=== PATIENT | female | born 1935 | race Caucasian/White ===

== ENCOUNTER 2017-06-23 11:08 | Observation (INO) | payer OTHER ==
[2017-06-23 12:54] LABS: BASOPHIL 0.6 % (0-2.0); EOSINOPHIL 8.8 % (0-4.5); MCH 28.7 pg (25.7-33.7); MCHC 32.1 g/dl (32.0-36.0); MEAN CELL VOLUME 89.4 fl (80-96); MEAN PLT VOLUME 9.7 fl (7.5-11.1); NEUTROPHILS 68.6 % (42.8-82.8); PLATELET COUNT 133 K/MM3 (134-434); RDW 14.3 % (11.6-15.6); WHITE BLOOD COUNT 4.3 K/mm3 (4.0-10.0)
[2017-06-23] MEDS ORDERED: SODIUM CHLORIDE 1,000 ML IV STA (13:04)
--- NOTE | 2017-06-23 13:07 | PDOC ---
History of Present Illness <Jennifer Platt - Last Filed: 06/23/17 16:33> - History of Present Illness Initial Comments: 06/23/17 13:01 "The patient is a 81 year old female, with significant past medical history of anxiety, agoraphobia, HTN, hypothyroidism, who presents to the emergency room complaining of 3 days of generalized weakness that progressively worsened this morning when she found it very difficult to get out of bed and felt like her legs were going to give out. She states that she has no energy. She explains that she recently discontinued taking adderall 3 days ago and has been feeling weak since. The patient was prescribed adderall 1 month ago and has been taking it daily. She states that she hasnt been eating much or drinking many fluids over the past few days. Her son notes that this has happened previously when the patient stopped taking adderall abruptly in the past. Pt denies weakness/ numbness/tingling on one side of her body, denies slurred speech or confusion. Denies fever, chills, vomiting. Denies headache, lightheadedness. Denies changes in vision. Denies chest pain, SOB. Social hx: The patient is a recent and lives home alone, but her daughter lives next door and takes care of her. PCP is Dr. Butler <Pierre Queen - Last Filed: 06/23/17 16:37> - General Chief Complaint: Weakness Stated Complaint: WEAKNESS Time Seen by Provider: 06/23/17 11:36 Past History <Jennifer Platt - Last Filed: 06/23/17 16:33> - Past Medical History Anemia: No Asthma: No HTN: Yes Thyroid Disease: Yes (hypo) - Surgical History Cholecystectomy: Yes - Suicide/Smoking/Psychosocial Hx Smoking History: Current every day smoker Have you smoked in the past 12 months: Yes Number of Cigarettes Smoked Daily: 10 Information on smoking cessation initiated: No 'Breaking Loose' booklet given: 11/06/14 Hx Alcohol Use: No Drug/Substance Use Hx: No Substance Use Type: None <Pierre Queen - Last Filed: 06/23/17 16:37> - Past Medical History Allergies/Adverse Reactions: Allergies Allergy/AdvReac Type Severity Reaction Status Date / Time No Known Allergies Allergy Verified 06/23/17 12:03 Home Medications: Ambulatory Orders Paroxetine HCl [Paxil -] 20 mg PO DAILY 11/05/14 Ramipril 10 mg PO DAILY 11/05/14 Budesonide/Formeterol Fumarate [SYMBICORT 80/4.5mcg -] 2 inh IH BID #0 inhaler 11/13/14 Levothyroxine [Synthroid -] 100 mcg PO DAILY@0700 #0 tablet 11/13/14 Pantoprazole Sodium [Protonix -] 20 mg PO DAILY #0 tablet.ec 11/13/14 Diazepam [Valium] 2 mg PO HS 06/23/17 Review of Systems - Review of Systems Comments:: 06/23/17 13:03 "GENERAL/CONSTITUTIONAL: +generalized weakness. No fever or chills. HEAD, EYES, EARS, NOSE AND THROAT: No change in vision. No ear pain or discharge. No sore throat. CARDIOVASCULAR: No chest pain or shortness of breath. RESPIRATORY: No cough, wheezing, or hemoptysis. GASTROINTESTINAL: No nausea, vomiting, diarrhea or constipation. GENITOURINARY: No dysuria, frequency, or change in urination. MUSCULOSKELETAL: No joint or muscle swelling or pain. No neck or back pain. SKIN: No rash NEUROLOGIC: No headache, vertigo, loss of consciousness, or change in strength/ sensation. ENDOCRINE: No increased thirst. No abnormal weight change. HEMATOLOGIC/LYMPHATIC: No anemia, easy bleeding, or history of blood clots. ALLERGIC/IMMUNOLOGIC: No hives or skin allergy." <Pierre Queen - Last Filed: 06/23/17 16:37> *Physical Exam - Vital Signs Last Vital Signs Temp Pulse Resp BP Pulse Ox 97.7 F 50 L 20 106/49 99 06/23/17 11:13 06/23/17 11:13 06/23/17 11:13 06/23/17 11:13 06/23/17 12:46 <Jennifer Platt - Last Filed: 06/23/17 16:33> - Vital Signs Last Vital Signs Temp Pulse Resp BP Pulse Ox 97.7 F 50 L 20 106/49 99 06/23/17 11:13 06/23/17 11:13 06/23/17 11:13 06/23/17 11:13 06/23/17 12:46 - Physical Exam Comments: 06/23/17 13:03 " GENERAL: Awake, alert, and fully oriented, in no acute distress HEAD: No signs of trauma EYES: PERRLA, EOMI, sclera anicteric, conjunctiva clear ENT: Auricles normal inspection, hearing grossly normal, nares patent, oropharynx clear without exudates. Moist mucosa NECK: Nontender, no stepoffs, Normal ROM, supple, no lymphadenopathy, JVD, or masses LUNGS: Breath sounds equal, clear to auscultation bilaterally. No wheezes, and no crackles HEART: Regular rate and rhythm, normal S1 and S2, no murmurs, rubs or gallops ABDOMEN: Soft, nontender, normoactive bowel sounds. No guarding, no rebound. No masses EXTREMITIES: Normal range of motion, no edema. No clubbing or cyanosis. No cords, erythema, or tenderness NEUROLOGICAL: Cranial nerves II through XII intact. 5/5 strength and sensation in all extremities, Normal speech, normal gait, normal cerebellar tests SKIN: Warm, Dry, normal turgor, no rashes or lesions noted." <Pierre Queen - Last Filed: 06/23/17 16:37> Heart Score/ECG Review - ECG Impressions Comment:: 06/23/17 13:05 NSR, no MAYNOR/STDs, TWI inferiorly, intervals wnl. <Pierre Queen - Last Filed: 06/23/17 16:37> ED Treatment Course - LABORATORY CBC & Chemistry Diagram: 06/23/17 12:40 06/23/17 12:40 - ADDITIONAL ORDERS Additional order review: Laboratory Results 06/23/17 06/23/17 06/23/17 12:40 12:40 12:40 PTT (Actin FS) 27.9 Lactic Acid 0.9 Magnesium 2.0 Creatine Kinase 81 Troponin I < 0.02 B-Natriuretic Peptide 418.42 Blood Type Antibody Screen Spec Expiration Date 06/23/17 12:40 PTT (Actin FS) Lactic Acid Magnesium Creatine Kinase Troponin I B-Natriuretic Peptide Blood Type Cancelled Antibody Screen Cancelled Spec Expiration Date Cancelled 06/23/17 12:40 RBC 4.00 MCV 89.4 MCHC 32.1 RDW 14.3 MPV 9.7 D Neutrophils % 68.6 D Lymphocytes % 13.7 D Monocytes % 8.3 Eosinophils % 8.8 H D Basophils % 0.6 - RADIOLOGY Radiograph Interpretation: 06/23/17 14:22 EXAM#: TYPE/EXAM: RESULT: [id number] RAD/CHEST X-RAY PORTABLE* HISTORY PROVIDED: Weakness. A single frontal portable projection of the chest at 1:27 PM is submitted. The heart size is within normal limits. The lung adkins are hyperaerated with increased interstitial markings consistent with chronic obstructive pulmonary disease. No pulmonary infiltrates or pleural effusions are identified. It is calcification of the thoracic aorta and degenerative arthritis of the thoracic spine. Since prior study of 11/05/2014, there has been little significant change. IMPRESSION: Moderately severe COPD, no acute pathology or significant change. Reported By: Leonardo Garcia MD 06/23/17 0814 - Medications Given in the ED: ED Medications Discontinued Medications Generic Name Dose Route Start Last Admin Trade Name Freq PRN Reason Stop Dose Admin Sodium Chloride 1,000 mls @ 1,000 mls/hr 06/23/17 13:04 06/23/17 13:05 Normal Saline - IV 06/23/17 14:03 1,000 mls/hr ASDIR STA Administration <Jennifer Platt - Last Filed: 06/23/17 16:33> - LABORATORY CBC & Chemistry Diagram: 06/23/17 12:40 06/23/17 12:40 - RADIOLOGY Radiology Studies Ordered: Category Date Time Status CHEST X-RAY PORTABLE* [RAD] Stat Radiology 06/23/17 12:03 Ordered <Pierre Queen - Last Filed: 06/23/17 16:37> Medical Decision Making - Medical Decision Making 06/23/17 16:[address] Alanis. Awaiting call <Jennifer Platt - Last Filed: 06/23/17 16:33> - Medical Decision Making 06/23/17 13:03 81F with generalized weakness x 3 days in the context of abruptly stopping her adderall. Possible withdrawal from adderall. Pt with no focal neuro deficits to suggest CVA. Will work up for infectious processes as well as thyroid or other metabolic derangement. EKG is nonischemic but will r/o TN as well. - Labs, TSH, trop - UA - CXR 06/23/17 16:36 CBC,CMP WBC 4.3 K/mm3 (4.0-10.0) 06/23/17 12:40 RBC 4.00 M/mm3 (3.60-5.2) 06/23/17 12:40 Hgb 11.5 GM/dL (10.7-15.3) D 06/23/17 12:40 Hct 35.8 % (32.4-45.2) D 06/23/17 12:40 MCV 89.4 fl (80-96) 06/23/17 12:40 MCH 28.7 pg (25.7-33.7) 06/23/17 12:40 MCHC 32.1 g/dl (32.0-36.0) 06/23/17 12:40 RDW 14.3 % (11.6-15.6) 06/23/17 12:40 Plt Count 133 K/MM3 (134-434) L 06/23/17 12:40 MPV 9.7 fl (7.5-11.1) D 06/23/17 12:40 Neutrophils % 68.6 % (42.8-82.8) D 06/23/17 12:40 Lymphocytes % 13.7 % (8-40) D 06/23/17 12:40 Monocytes % 8.3 % (3.8-10.2) 06/23/17 12:40 Eosinophils % 8.8 % (0-4.5) H D 06/23/17 12:40 Basophils % 0.6 % (0-2.0) 06/23/17 12:40 Sodium 139 mmol/L (136-145) 06/23/17 12:40 Potassium 4.8 mmol/L (3.5-5.1) D 06/23/17 12:40 Chloride 101 mmol/L (98-107) 06/23/17 12:40 Carbon Dioxide 32 mmol/L (21-32) 06/23/17 12:40 Anion Gap 6 (8-16) L 06/23/17 12:40 BUN 22 mg/dL (7-18) H D 06/23/17 12:40 Creatinine 0.5 mg/dL (0.55-1.02) L 06/23/17 12:40 Creat Clearance w eGFR > 60 (>60) 06/23/17 12:40 Random Glucose 83 mg/dL (74-106) D 06/23/17 12:40 Lactic Acid 0.9 mmol/L (0.4-2.0) 06/23/17 12:40 Calcium 9.0 mg/dL (8.5-10.1) 06/23/17 12:40 Magnesium 2.0 mg/dL (1.8-2.4) 06/23/17 12:40 Total Bilirubin 0.9 mg/dL (0.2-1.0) 06/23/17 12:40 AST 31 U/L (15-37) D 06/23/17 12:40 ALT 26 U/L (12-78) D 06/23/17 12:40 Alkaline Phosphatase 41 U/L (45-117) L D 06/23/17 12:40 Creatine Kinase 81 IU/L (26-192) 06/23/17 12:40 Troponin I < 0.02 ng/ml (0.00-0.05) 06/23/17 12:40 B-Natriuretic Peptide 418.42 pg/ml (5-450) 06/23/17 12:40 Total Protein 6.4 g/dl (6.4-8.2) 06/23/17 12:40 Albumin 3.7 g/dl (3.4-5.0) D 06/23/17 12:40 TSH 0.04 uIU/ml (0.358-3.74) L 06/23/17 12:40 CXR and UA without infection. Labs unremarkable other than TSH 0.04. Pt with no clinical signs of hyperthyroidism. Pt to be admitted for obs given weakness of unclear etiology. <Pierre Queen - Last Filed: 06/23/17 16:37> *DC/Admit/Observation/Transfer - Attestations Scribe Attestion: 06/23/17 14:35 Documentation prepared by PONCHO Morales, acting as medical research tech for Pierre Queen MD. <Jennifer Platt - Last Filed: 06/23/17 16:33> - Discharge Dispostion Admit: Yes <Pierre Queen - Last Filed: 06/23/17 16:37> Diagnosis at time of Disposition: Weakness - Referrals Referrals: Ward Butler MD [Primary Care Provider] -
[2017-06-23 13:09] LABS: CPK 81 IU/L (26-192); TROPONIN I < 0.02 ng/ml (0.00-0.05)
[2017-06-23 14:37] LABS: ALBUMIN 3.7 g/dl (3.4-5.0); ANION GAP 6 (8-16); CO2 32 mmol/L (21-32); GLUCOSE,RANDOM 83 mg/dL (74-106)
[2017-06-23 14:40] LABS: BILIRUBIN,TOTAL 0.9 mg/dL (0.2-1.0); CREATININE 0.5 mg/dL (0.55-1.02); SGPT/ALT 26 U/L (12-78); TOT PROT 6.4 g/dl (6.4-8.2)
[2017-06-23 14:42] LABS: ALK PHOS 41 U/L (45-117); SGOT/AST 31 U/L (15-37)
[2017-06-23 14:49] LABS: THYROID STIMULATING HORMONE 0.04 uIU/ml (0.358-3.74)
[2017-06-23 15:29] LABS: URINE APPEARANCE SLCLOUDY; URINE BILIRUBIN NEGATIVE (NEGATIVE); URINE BLOOD NEGATIVE (NEGATIVE); URINE COLOR YELLOW; URINE GLUCOSE (UA) NEGATIVE (NEGATIVE); URINE KETONE NEGATIVE (NEGATIVE); URINE LEUK ESTERASE NEGATIVE (NEGATIVE); URINE NITRITE NEGATIVE (NEGATIVE); URINE PROTEIN NEGATIVE (NEGATIVE); URINE UROBILINOGEN NEGATIVE mg/dL (0.2-1.0)
[2017-06-23] MEDS ORDERED: ACETAMINOPHEN 325 MG TABLET (FP) PO PRN (16:36)
[2017-06-23] MEDS ORDERED: diazePAM 2 MG TABLET PO SCH (22:00)
[2017-06-23] MEDS ORDERED: diazePAM 2 MG TABLET ONE (22:37)
[2017-06-23] MEDS: BUDESONIDE/FORMETEROL FUMARATE 80/4.5 mcg INHALER IH SCH (22:42)
[2017-06-24 01:40] VITALS: BMI 16.0
[2017-06-24 07:48] LABS: BASOPHIL 1.2 % (0-2.0); EOSINOPHIL 16.7 % (0-4.5); MCH 28.9 pg (25.7-33.7); MCHC 32.4 g/dl (32.0-36.0); MEAN CELL VOLUME 89.2 fl (80-96); MEAN PLT VOLUME 9.3 fl (7.5-11.1); PLATELET COUNT 118 K/MM3 (134-434); RDW 13.7 % (11.6-15.6); WHITE BLOOD COUNT 2.8 K/mm3 (4.0-10.0)
[2017-06-24 07:54] VITALS: BP 110/49; PULSE 54; TEMP 98
[2017-06-24 08:11] LABS: ANION GAP 4 (8-16); CO2 35 mmol/L (21-32); CREATININE 0.5 mg/dL (0.55-1.02); GLUCOSE,RANDOM 83 mg/dL (74-106); MAGNESIUM 2.1 mg/dL (1.8-2.4); PHOSPHOROUS 3.2 mg/dL (2.5-4.9)
[2017-06-24] MEDS ORDERED: PT OWN MED DRAWER 7, Y5N ONE (09:58)
[2017-06-24] MEDS ORDERED: PARoxetine HCL 20 MG TABLET (FP) PO SCH (10:00)
[2017-06-24] MEDS ORDERED: RAMIPRIL 5 MG CAPSULE (FP) PO SCH (10:00)
[2017-06-24] MEDS ORDERED: PANTOPRAZOLE 20 MG TABLET (FP) PO SCH (10:00)
[2017-06-24] MEDS: BUDESONIDE/FORMETEROL FUMARATE 80/4.5 mcg INHALER IH SCH (10:20)
--- NOTE | 2017-06-24 10:44 | EKG ---
Test Reason : Blood Pressure : / mmHG Vent. Rate : 054 BPM Atrial Rate : 054 BPM P-R Int : 098 ms QRS Dur : 100 ms QT Int : 456 ms P-R-T Axes : 090 -67 -61 degrees QTc Int : 432 ms POOR DATA QUALITY, INTERPRETATION MAY BE ADVERSELY AFFECTED SINUS BRADYCARDIA WITH SHORT LA INCOMPLETE RIGHT BUNDLE BRANCH BLOCK LEFT ANTERIOR FASCICULAR BLOCK LATERAL INFARCT , AGE UNDETERMINED ABNORMAL ECG WHEN COMPARED WITH ECG OF 09-NOV-2014 13:06, VENT. RATE HAS DECREASED BY 43 BPM INCOMPLETE RIGHT BUNDLE BRANCH BLOCK IS NOW PRESENT Confirmed by BRIAN BACH MD ([id number]) on 06/24/2017 10:44:02 AM Referred By: Confirmed By:BRIAN BACH MD
--- NOTE | 2017-06-24 11:53 | HP ---
Admitting History and Physical - Past Medical History Cardiovascular: Yes: HTN Psych: Yes: Other (agoraphobia) Endocrine: Yes: Hypothyroidism - Smoking History Smoking history: Current every day smoker Have you smoked in the past 12 months: Yes Aproximately how many cigarettes per day: 10 - Alcohol/Substance Use Hx Alcohol Use: No Home Medications - Allergies Allergies/Adverse Reactions: Allergies Allergy/AdvReac Type Severity Reaction Status Date / Time No Known Allergies Allergy Verified 06/23/17 12:03 - Home Medications Home Medications: Ambulatory Orders Paroxetine HCl [Paxil -] 20 mg PO DAILY 11/05/14 Ramipril 10 mg PO DAILY 11/05/14 Budesonide/Formeterol Fumarate [SYMBICORT 80/4.5mcg -] 2 inh IH BID #0 inhaler 11/13/14 Levothyroxine [Synthroid -] 100 mcg PO DAILY@0700 #0 tablet 11/13/14 Pantoprazole Sodium [Protonix -] 20 mg PO DAILY #0 tablet.ec 11/13/14 Diazepam [Valium] 2 mg PO HS 06/23/17 Physical Examination Vital Signs: Vital Signs Temperature 36.6 C 06/24/17 07:54 Pulse Rate 54 L 06/24/17 07:54 Respiratory Rate 20 06/24/17 07:54 Blood Pressure 110/49 06/24/17 07:54 O2 Sat by Pulse Oximetry (%) 99 06/24/17 04:00 Labs: CBC, BMP 06/24/17 06:30 06/24/17 06:30
--- NOTE | 2017-06-24 11:54 | DS ---
Physical Examination Vital Signs: Vital Signs Temperature 36.6 C 06/24/17 07:54 Pulse Rate 54 L 06/24/17 07:54 Respiratory Rate 20 06/24/17 07:54 Blood Pressure 110/49 06/24/17 07:54 O2 Sat by Pulse Oximetry (%) 99 06/24/17 04:00 Labs: CBC, BMP 06/24/17 06:30 06/24/17 06:30 Discharge Summary Reason For Visit: DEHYDRATION Current Active Problems Weakness (Acute) Condition: Good - Instructions Diet, Activity, Other Instructions: resume previous diet and activity Disposition: HOME - Home Medications Comprehensive Discharge Medication List: Ambulatory Orders Paroxetine HCl [Paxil -] 20 mg PO DAILY 11/05/14 Ramipril 10 mg PO DAILY 11/05/14 Budesonide/Formeterol Fumarate [SYMBICORT 80/4.5mcg -] 2 inh IH BID #0 inhaler 11/13/14 Levothyroxine [Synthroid -] 100 mcg PO DAILY@0700 #0 tablet 11/13/14 Pantoprazole Sodium [Protonix -] 20 mg PO DAILY #0 tablet.ec 11/13/14 Diazepam [Valium] 2 mg PO HS 06/23/17
== END 2017-06-24 14:07 | disposition home or self-care (01) ==
LOC: JER 11:08 → JERBED 16:37 → J6S 06-24 00:55
PROVIDERS: ADMIT Internal Medicine; ATTEND Internal Medicine
PROC: 3E0337Z Introduction of Electrolytic and Water Balance Substance into Peripheral Vein, Percutaneous Approach (ICD-10-PCS; principal; 2017-06-23)
PROC: 3E0F7GC Introduction of Other Therapeutic Substance into Respiratory Tract, Via Natural or Artificial Opening (ICD-10-PCS; 2017-06-23)
DX: E86.0 Dehydration (principal); R53.1 Weakness; I10 Essential (primary) hypertension; E03.9 Hypothyroidism, unspecified; F40.00 Agoraphobia, unspecified; F17.210 Nicotine dependence, cigarettes, uncomplicated
CPT/HCPCS: 36415; 71010-TC; 80048; 80053; 81003; 83605; 83735; 83880; 84100; 84439; 84443; 84480; 84484; 85025; 85730; 87040; 87086; 93005; 93010; 97116-GP; 97161-GP; 99285-25; G0378

== ENCOUNTER 2019-08-12 14:27 | Emergency (ER) | payer OTHER ==
[2019-08-12 15:16] VITALS: BP 139/87; PULSE 82; TEMP 98; BMI 14.1
[2019-08-12 16:03] LABS: BASO % 1.4 % (0-2.0); EOS % 1.7 % (0-4.5); HEMATOCRIT 39.2 % (32.4-45.2); HEMOGLOBIN 12.8 GM/dL (10.7-15.3); LYMPH % 5.2 % (8-40); MCH 29.6 pg (25.7-33.7); MCHC 32.8 g/dl (32.0-36.0); MEAN CELL VOLUME 90.3 fl (80-96); MEAN PLT VOLUME 9.9 fl (7.5-11.1); MONO % 7.3 % (3.8-10.2); NEUT % 84.4 % (42.8-82.8); PLATELET COUNT 131 K/MM3 (134-434); RBC 4.34 M/mm3 (3.60-5.2); RDW 14.7 % (11.6-15.6); WHITE BLOOD COUNT 4.7 K/mm3 (4.0-10.0)
[2019-08-12 16:04] LABS: PH,URINE 8.5 (5.0-8.0); URINE APPEARANCE CLEAR; URINE BILIRUBIN NEGATIVE (NEGATIVE); URINE COLOR YELLOW; URINE GLUCOSE (UA) NEGATIVE (NEGATIVE); URINE KETONE NEGATIVE (NEGATIVE); URINE LEUK ESTERASE NEGATIVE (NEGATIVE); URINE NITRITE NEGATIVE (NEGATIVE); URINE PROTEIN NEGATIVE (NEGATIVE)
[2019-08-12 16:31] LABS: ALBUMIN 3.9 g/dl (3.4-5.0); CALCIUM 9.5 mg/dL (8.5-10.1); TOT PROT 6.8 g/dl (6.4-8.2)
[2019-08-12 16:46] LABS: COCAINE, UR NEGATIVE ng/ml (CUTOFF=300); METHADONE, UR NEGATIVE ng/ml (CUTOFF=300); OPIATES, URI NEGATIVE ng/ml (CUTOFF=300); PHENCYCLIDINE,URINE NEGATIVE ng/ml (CUTOFF=25); URINE AMPHETAMINES NEGATIVE ng/ml (CUTOFF=500); URINE BARBITURATES NEGATIVE ng/ml (CUTOFF=200); URINE BENZODIAZEPINES NEGATIVE ng/ml (CUTOFF=200)
[2019-08-12] MEDS ORDERED: LACTATED RINGERS SOLUTION 1000 ML INFUS.BAG IV ONE (18:09)
--- NOTE | 2019-08-12 18:10 | PDOC ---
History of Present Illness - General Chief Complaint: Weakness Stated Complaint: WEAK/RULE OUT UTI Time Seen by Provider: 08/12/19 15:09 History Source: Patient, Family (Son present at bedside.) Exam Limitations: No Limitations - History of Present Illness Initial Comments: HPI: 83 y/o female presenting to [facility] ER complaining of seeing bugs around her room and on her pills for the past two days. Pt's son, at bedside, spent the night with the pt and did not observe bugs. Pt seemed confused yesterday afternoon. Has not gotten out of bed for the past two weeks and began to urinate on herself. Was seen at home by a HOSEMAN on Wednesday and diagnosed with a UTI, then prescribed Augmentin. Pt denies dysuria, hematuria, or increased urinary frequency. Initially reports she did not leave the bed because of lower extremity weakness, but then when asked to clarify, reports she was concerned that "everyone dies in my house." Son reports the pt was previously prescribed Valium and may have taken pills inappropriately. Also may have taken Unisom and/or Dramamine. However, the son was with her yesterday and does not believe she would have taken any of these medications in the past two days. Family expressed concern that the pt has not been eating. Sister lives next door. Pt has seen a psychiatrist in the last three months, and family believes another appointment can be made urgently. Pt denies auditory hallucinations, suicidal ideations, or homicidal ideations. Social Hx: - No h/o of EtOH or street drug abuse - Former smoker Medical Hx: - Depression, managed with Paroxetine, Ramipril, and Diazepam - COPD - Hypothyroidism, Levothyroxine dose was changed in the past few months (unable to give exact timeline) Review of Systems: In addition to that documented in the HPI above, the additional ROS was obtained : Constitutional- Denies fevers or chills Head- Denies vision changes ENMT- Denies sore throat CV- Denies chest pain Resp- Denies SOB GI- Denies vomiting or diarrhea - Per HPI MSK- Denies recent trauma Skin- Denies new rashes Neuro- Denies new numbness or tingling Endocrine- Denies polyuria Heme- Denies bleeding or bruising Past History - Past Medical History Allergies/Adverse Reactions: Allergies Allergy/AdvReac Type Severity Reaction Status Date / Time No Known Allergies Allergy Verified 06/23/17 12:03 Home Medications: Ambulatory Orders Paroxetine HCl [Paxil -] 40 mg PO DAILY 11/05/14 Ramipril 10 mg PO DAILY 11/05/14 Diazepam [Valium] 2 mg PO HS 06/23/17 Amoxicillin/Potassium Clav [Amox-Clav 500-125 mg Tablet] 1 each PO BID 08/12/19 Levothyroxine [Synthroid -] 112 mcg PO DAILY@0700 08/12/19 Anemia: No Asthma: No COPD: Yes HTN: Yes Thyroid Disease: Yes (hypo) - Surgical History Cholecystectomy: Yes - Psycho Social/Smoking Cessation Hx Smoking History: Former smoker Have you smoked in the past 12 months: No Number of Cigarettes Smoked Daily: 10 Information on smoking cessation initiated: No 'Breaking Loose' booklet given: 11/06/14 Hx Alcohol Use: No Drug/Substance Use Hx: No Substance Use Type: None *Physical Exam - Vital Signs Last Vital Signs Temp Pulse Resp BP Pulse Ox 98 F 82 18 139/87 92 L 08/12/19 15:11 08/12/19 15:11 08/12/19 15:11 08/12/19 15:11 08/12/19 15:11 ED Treatment Course - LABORATORY CBC & Chemistry Diagram: 08/12/19 15:55 08/12/19 15:55 - ADDITIONAL ORDERS Additional order review: Laboratory Results 08/12/19 08/12/19 08/12/19 16:25 15:55 15:55 Sodium Potassium Chloride Carbon Dioxide Anion Gap BUN Creatinine Est GFR (CKD-EPI)AfAm Est GFR (CKD-EPI)NonAf Random Glucose Calcium Total Bilirubin AST ALT Alkaline Phosphatase Total Protein Albumin TSH 0.60 Thyroxine (T4) 20.9 H Urine Color Yellow Urine Appearance Clear Urine pH 8.5 H D Ur Specific [place] 1.011 Urine Protein Negative Urine Glucose (UA) Negative Urine Ketones Negative Urine Blood Negative Urine Nitrite Negative Urine Bilirubin Negative Urine Urobilinogen 1.0 Ur Leukocyte Esterase Negative Opiates Screen Negative Methadone Screen Negative Barbiturate Screen Negative Phencyclidine Screen Negative Ur Amphetamines Screen Negative MDMA (Ecstasy) Screen Negative Benzodiazepines Screen Negative Cocaine Screen Negative U Marijuana (THC) Screen Negative 08/12/19 15:55 Sodium 139 Potassium 5.0 Chloride 104 Carbon Dioxide 31 Anion Gap 4 L BUN 34.0 H Creatinine 1.0 Est GFR (CKD-EPI)AfAm 61.19 Est GFR (CKD-EPI)NonAf 52.79 Random Glucose 93 Calcium 9.5 Total Bilirubin 1.0 AST 58 H ALT 58 Alkaline Phosphatase 84 Total Protein 6.8 Albumin 3.9 TSH Thyroxine (T4) Urine Color Urine Appearance Urine pH Ur Specific [place] Urine Protein Urine Glucose (UA) Urine Ketones Urine Blood Urine Nitrite Urine Bilirubin Urine Urobilinogen Ur Leukocyte Esterase Opiates Screen Methadone Screen Barbiturate Screen Phencyclidine Screen Ur Amphetamines Screen MDMA (Ecstasy) Screen Benzodiazepines Screen Cocaine Screen U Marijuana (THC) Screen 08/12/19 15:55 RBC 4.34 MCV 90.3 MCHC 32.8 RDW 14.7 MPV 9.9 Neutrophils % 84.4 H D Lymphocytes % 5.2 L D Monocytes % 7.3 Eosinophils % 1.7 D Basophils % 1.4 - RADIOLOGY Radiology Studies Ordered: Category Date Time Status HEAD CT WITHOUT CONTRAST [CT] Stat CT Scan 08/12/19 16:45 Ordered Discharge - Discharge Information Problems reviewed: Yes Clinical Impression/Diagnosis: Visual hallucination - Follow up/Referral - Patient Discharge Instructions Patient Printed Discharge Instructions: DI for Depression -- Adult, DI for Atypical Depression Additional Instructions: Follow up with your primary care doctor in the next 1-2 days. You will need to call to make an appointment. A copy of todays results are attached to this packet. Take it to the appointment so your doctor can review them. You should also follow up with your psychiatrist within the next 1-2 days. You will need to call to make an appointment. A copy of todays results are attached to this packet. Take it to the appointment so your doctor can review them. Go to the nearest emergency department if your condition worsens or you feel like you need additional emergency evaluation. Print Language: OCCITAN - Post Discharge Activity
--- NOTE | 2019-08-12 19:34 | PDOC ---
Documentation entered by Dimitri King SCRIBE, acting as scribe for Hari Ricks MD. Hari Ricks MD: This documentation has been prepared by the Fernando haro Daniel, SCRIBE, under my direction and personally reviewed by me in its entirety. I confirm that the documentation accurately reflects all work, treatment, procedures, and medical decision making performed by me. Attending Attestation - Resident Resident Name: MurrayWard - ED Attending Attestation I have performed the following: I have examined & evaluated the patient, The case was reviewed & discussed with the resident, I agree w/resident's findings & plan, Exceptions are as noted - HPI HPI: 08/12/19 19:33 83 years old with past medical history significant for anxiety depression and agoraphobia brought in by family after complaining of seeing bugs yesterday by her family Currently denies any suicidal ideation homicidal ideation visual or auditory hallucinations family states she is closer to her baseline last night when the episode happened patient had taken her Valium and may have also taken Unisom. Family was concerned because she had a recent UTI they wanted to make sure that her labs were okay and she was not suffering from worsening infection or dehydration she is currently back to her baseline mental status - Physicial Exam PE: 08/12/19 19:33 Vitals: Triage Vital signs reviewed General Appearance: No acute distress, well nourished well developed, Head: Atraumatic, Chest Wall: Nontender Cardiac: Regular rate and rhythym, no murmurs, no rubs, no gallops, Lungs: Clear to auscultation bilateral, good air movement bilaterally, Abdomen: Soft, non distended, normal bowel sounds, non tender to palpation Extremities: Full range of motion to all extremities, no cyanosis, clubbing, or edema Skin: Warm and dry, no rashes or lesions, no rash, no petechiae Neuro: AOX3; cranial Nerves 2-12 grossly intact, strength intact to all extremities, sensation intact to all extremities, Psych: Normal mood, normal affect - Medical Decision Making 08/12/19 19:33 Well-appearing no apparent distress brought in for evaluation given odd behavior last night currently back to baseline mental status we will check labs head CT urinalysis observe and reassess Reevaluation labs and urine within normal limits patient is her baseline mental status family feels comfortable taking her home head CT demonstrates no acute pathology they will follow-up with her doctor on Wednesday to return to the ED for any severe worsening symptoms or for any concerns Findings, the need for follow-up and strict return instructions discussed with patient and family.
--- NOTE | 2019-08-13 17:03 | EKG ---
Test Reason : Blood Pressure : / mmHG Vent. Rate : 083 BPM Atrial Rate : 083 BPM P-R Int : 120 ms QRS Dur : 090 ms QT Int : 374 ms P-R-T Axes : 087 -66 060 degrees QTc Int : 439 ms SINUS RHYTHM WITH PREMATURE ATRIAL COMPLEXES POSSIBLE LEFT ATRIAL ENLARGEMENT LEFT ANTERIOR FASCICULAR BLOCK ANTEROSEPTAL INFARCT , AGE UNDETERMINED ABNORMAL ECG Confirmed by SUDHAKAR LINK MD ([id number]) on 08/13/2019 5:03:36 PM Referred By: Confirmed By:SUDHAKAR LINK MD
== END 2019-08-12 21:31 | disposition home or self-care (01) ==
LOC: JER 14:27
DX: R44.1 Visual hallucinations (principal); J44.9 Chronic obstructive pulmonary disease, unspecified; F32.9 Major depressive disorder, single episode, unspecified; F40.00 Agoraphobia, unspecified; Z87.440 Personal history of urinary (tract) infections; Z79.2 Long term (current) use of antibiotics; N39.498 Other specified urinary incontinence
CPT/HCPCS: 36415; 70450-TC; 71045-TC-FY; 80053; 80307; 81003; 84436; 84443; 85025; 87086; 93005; 93010; 99283-25